=== PATIENT | female | born 1980 | race Caucasian/White ===

== ENCOUNTER → 2023-08-02 | Outpatient (CLI) | payer BC ==
[2023-08-02 07:46] LABS: Basophils # (auto) 0 10 ^3/uL (0-0.2); Basophils % (auto) 0.2 % (0.0-2.0); Eosinophils # (auto) 0.2 10 ^3/uL (0-0.8); Eosinophils % (auto) 3.3 % (0.0-7.0); Hematocrit 33.5 % (36.0-46.0); Lymphocytes # (auto) 1.9 10 ^3/uL (0.4-5.4); Lymphocytes % (auto) 24.5 % (10.0-50.0); Mean Corpuscular Hemoglobin 27.2 pg (28.0-32.0); Mean Corpuscular Hgb Conc. 32.8 g/dL (32.0-36.0); Monocytes # (auto) 0.3 10 ^3/uL (0-1.3); Monocytes % (auto) 4.4 % (0.0-12.0); Neutrophils # (auto) 5.1 10 ^3/uL (1.6-8.6); Neutrophils % (auto) 67.6 % (37.0-80.0); Red Blood Cells 4.04 10^6/uL (4.0-5.20); Red Cell Distribution Width 15.2 % (11.8-14.3); White Blood Cell 7.6 10^3/uL (4.4-10.8)
[2023-08-02 08:34] LABS: Alanine Aminotransferase 18 U/L (7-40); Albumin 4.5 g/dL (3.2-4.8); Alkaline Phosphatase 62 U/L (46-116); Anion Gap 6 (5-15); Aspartate Aminotransferase 10 U/L (13-40); BUN/Creatinine Ratio 10.4 (10.0-20.0); Bilirubin, Total 0.2 mg/dL (0.2-1.0); Blood Urea Nitrogen 8 mg/dL (9-23); Calcium 9.1 mg/dL (8.5-10.1); Carbon Dioxide 26 mmol/L (20-30); Chloride 107 mmol/L (98-107); Cholesterol 170 mg/dL (< 200); Glucose 102 mg/dL (74-106); HDL Cholesterol 40 mg/dL (40-59); LDL Cholesterol 116 mg/dL (< 100); Potassium 4.3 mmol/L (3.5-5.1); Sodium 139 mmol/L (136-145); Total Protein 6.9 g/dL (5.7-8.2); Triglycerides 135 mg/dL (< 150)
[2023-08-02 11:54] LABS: Urine Blood Negative /uL (Negative); Urine Clarity Clear (Clear); Urine Color Light-Yellow (Yellow); Urine Protein, UAD Negative (Negative); Urine Urobilinogen Normal (Negative)
== END | disposition home or self-care (01) ==
LOC: LAB 07:25
PROVIDERS: ATTEND Family Medicine
DX: K76.0 Fatty (change of) liver, not elsewhere classified (principal); R73.03 Prediabetes; E78.5 Hyperlipidemia, unspecified; E66.01 Morbid (severe) obesity due to excess calories; E88.1 Lipodystrophy, not elsewhere classified; E79.0 Hyperuricemia without signs of inflammatory arthritis and tophaceous disease; Z87.442 Personal history of urinary calculi
CPT/HCPCS: 36415; 80053; 80061; 81003; 83036; 84443; 84550; 85025

== ENCOUNTER 2024-01-21 06:25 | Inpatient (IN) | payer BC ==
[2024-01-18 13:02] LABS: Urine Bacteria None Seen /hpf (None Seen)
[2024-01-18 13:15] LABS: Basophils # (auto) 0 10 ^3/uL (0-0.2); Basophils % (auto) 0.2 % (0.0-2.0); Eosinophils # (auto) 0.2 10 ^3/uL (0-0.8); Eosinophils % (auto) 2.7 % (0.0-7.0); Hematocrit 33.1 % (36.0-46.0); Hemoglobin 10.7 g/dL (12.2-16.2); Lymphocytes # (auto) 2.4 10 ^3/uL (0.4-5.4); Mean Corpuscular Hemoglobin 26.9 pg (28.0-32.0); Mean Corpuscular Hgb Conc. 32.4 g/dL (32.0-36.0); Monocytes # (auto) 0.3 10 ^3/uL (0-1.3); Monocytes % (auto) 4.1 % (0.0-12.0); Neutrophils # (auto) 3.8 10 ^3/uL (1.6-8.6); Platelet Count (auto) 339 10^3/uL (140-450); Red Blood Cells 3.99 10^6/uL (4.0-5.20); Red Cell Distribution Width 14.3 % (11.8-14.3); White Blood Cell 6.8 10^3/uL (4.4-10.8)
[2024-01-18 13:29] LABS: INR 1.05 (0.9-1.15); Partial Thromboplastin Time 28.2 SEC (24.5-34.5); Prothrombin Time 11.1 sec (9.3-11.8)
[2024-01-18 13:33] LABS: Urine Blood 2+ /uL (Negative); Urine Clarity Clear (Clear); Urine Color Light-Yellow (Yellow); Urine Protein, UAD Negative (Negative); Urine Specific Gravity 1.013 (1.001-1.035); Urine Urobilinogen Normal (Negative); Urine WBC <1 /hpf (0 - 5); Urine pH 5.5 (5.0-9.0)
[2024-01-18 13:54] LABS: Alanine Aminotransferase 24 U/L (7-40); Albumin 4.6 g/dL (3.2-4.8); Alkaline Phosphatase 60 U/L (46-116); Anion Gap 5 (5-15); Aspartate Aminotransferase 9 U/L (13-40); BUN/Creatinine Ratio 11.4 (10.0-20.0); Bilirubin, Total 0.3 mg/dL (0.2-1.0); Blood Urea Nitrogen 9 mg/dL (9-23); Calcium 9.7 mg/dL (8.7-10.4); Carbon Dioxide 29 mmol/L (20-31); Chloride 105 mmol/L (98-107); Glucose 93 mg/dL (74-106); Potassium 4.1 mmol/L (3.5-5.1); Sodium 139 mmol/L (136-145); Total Protein 7.1 g/dL (5.7-8.2)
--- NOTE | 2024-01-18 14:04 | DVHHP ---
ADMIT DATE: 01/21/2024 CHIEF COMPLAINT: Abnormal uterine bleeding, heavy menses. HISTORY OF PRESENT ILLNESS: The patient is a 43-year-old, 2, para 2, admitted for exploratory laparotomy, supracervical hysterectomy. The patient has had several years of heavy abnormal bleeding. Her ultrasound reveals 15 x 10 x 8 cm uterus with submucosal myoma. Her Pap is normal. Risks, complication, alternatives, indications discussed with the patient. The patient wants supracervical hysterectomy with possible removal of tubes. PAST MEDICAL HISTORY: None. PAST SURGICAL HISTORY: x2. SOCIAL HISTORY: None. FAMILY HISTORY: None. OBSTETRIC AND GYNECOLOGIC HISTORY: Two sections. ALLERGIES: No known drug allergies. REVIEW OF SYSTEMS: Consistent with HPI. PHYSICAL EXAMINATION: VITAL SIGNS: Stable. Afebrile. HEENT: Within normal limits. CARDIOVASCULAR: Regular rate and rhythm. LUNGS: Clear to auscultation. BREASTS: Symmetrical. No masses. ABDOMEN: Soft. Obese. Midline mass palpated. PELVIC: External genitalia within normal limits. Vagina: Normal. Cervix: Grossly normal-appearing uterus, 15 week size. Adnexa nonpalpable. EXTREMITIES: No clubbing, cyanosis, or edema. IMPRESSION: * Menorrhagia with anemia. * Symptomatic fibroid uterus with a submucosal myoma. * Morbid obesity. * History of section x2. PLAN: Exploratory laparotomy, possible supracervical hysterectomy, possible removal of bilateral tubes. Informed consent obtained. Risks and complications of surgery including infection, bleeding, hematoma formation, possibility of blood transfusion discussed with the patient. Need for having Pap every year discussed with the patient. The patient fully understands. She wishes to proceed with planned procedure. Possibility of infection, DVT, PE discussed with the patient. DO IVONNE Biswas TID: [id number] RECEIPT: [id number]
[~2024-01-21] VITALS: Ht 167.6 cm; Wt 123.1 kg
[~2024-01-21 06:25] MED LIST: MULT-1018 OR
[2024-01-21] MEDS: ceFAZolin 2 GM/D5W100ml 100 ML IV ONE (06:33)
[2024-01-21] MEDS: LIDOCAINE 1% HCL (LOCAL ANESTH.) INJ 20ML MDV ONE ×2 (07:01→08:30)
[2024-01-21] MEDS: SUCCINYLCHOLINE CHLORIDE 20 MG/ML 10ML VIAL IV ONE (07:06)
[2024-01-21] MEDS ORDERED: fentaNYL CITRATE 100 MCG/2 ML VL ONE (07:08)
[2024-01-21] MEDS ORDERED: PROPOFOL 10 MG/ML 20 ML IV ONE (07:09)
[2024-01-21] MEDS ORDERED: ROCURONIUM 10MG/ML 10ML VIAL IV ONE (07:22)
[2024-01-21] MEDS ORDERED: DexAMETHasone SOD PHOS 10MG/1ML VIAL INJ ONE (07:25)
[2024-01-21] MEDS ORDERED: ONDANSETRON HCL 4 MG/2 ML VIAL ONE (07:25)
[2024-01-21] MEDS ORDERED: PHENYLEPHRINE HCL 10 MG/ML VL ONE (07:25)
[2024-01-21] MEDS: ROPIVACAINE 0.5% (5MG/ML) 20ML AMPULE IJ ONE (08:06)
[2024-01-21] MEDS ORDERED: MEPERIDINE HCL (50 MG/ML) 1 ML VIAL ONE (08:14)
[2024-01-21] MEDS: BUPIVACAINE W/ EPINEPH 0.5% INJ 50ML MDV IJ ONE (08:30)
[2024-01-21] MEDS ORDERED: SUGAMMADEX 200mg/2ml Vial (100MG/ML) IV ONE (08:32)
[2024-01-21] MEDS ORDERED: MEPERIDINE HCL (25 MG/ML) 1ML VIAL ONE (08:39)
[2024-01-21 08:57] VITALS: O2SAT 100
[2024-01-21] MEDS: ONDANSETRON HCL 4 MG/2 ML VIAL IV ONE (09:15)
[2024-01-21] MEDS: HYDROmorphone HCL 2 MG/ML VL/or syr IV PRN ×2 (09:36→17:49)
[2024-01-21] MEDS: LACTATED RINGER'S 1,000 ML IV SCH (09:45)
[2024-01-21] MEDS: ACETAMINOPHEN IV 100 ML IV ONE (12:08)
[2024-01-21] MEDS: ACETAMINOPHEN IV 1000 MG/100ML (10MG/ML) IV PRN (12:13)
[2024-01-21] MEDS: MEPERIDINE HCL (25 MG/ML) 1ML VIAL ONE (13:35)
[2024-01-21] MEDS: MEPERIDINE HCL (25 MG/ML) 1ML VIAL IV PRN (13:37)
[2024-01-21 14:20] VITALS: BP 121/68; PULSE 83; RESP 14; TEMP 97.4; O2SAT 96
[2024-01-21 14:33] VITALS: PULSE 83; RESP 14; O2SAT 96
[2024-01-21] MEDS ORDERED: IBUP-1456 PO (14:36)
[2024-01-21] MEDS ORDERED: HYDR-4072 PO (14:36)
[2024-01-21] MEDS ORDERED: DOCU-94 PO (14:36)
[2024-01-21] MEDS ORDERED: ZOFR4T PO (14:36)
--- NOTE | 2024-01-21 14:59 | POSTOP ---
Post-Operative Note Post-Operative Note Preop Diagnosis aub,memorrhagia with anemia submucosal myoma morbid obesity Postop Diagnosis: same Operation performed expl lap,supracervical hysterectomy Specimen uterus Anesthesia: General Anesthesiologist: kelli Blood Loss(fluid mgmt) 100ml Surgeon Mahad Ruff [place] dr staley and vonda Implant filschie Complications & Mgmt none Additional Remarks op report [id number] Date 01/21/24 Time 14:56 MAHAD RUFF DO Jan 21, 2024 14:59
--- NOTE | 2024-01-21 15:36 | DVHOP ---
DATE OF SURGERY: 01/21/2024 POSTOPERATIVE DIAGNOSES: * Abnormal uterine bleeding. * Menorrhagia with anemia. * Submucosal myoma. * Morbid obesity. POSTOPERATIVE DIAGNOSES: * Abnormal uterine bleeding. * Menorrhagia with anemia. * Submucosal myoma. * Morbid obesity. PROCEDURE: Exploratory laparotomy, supracervical hysterectomy. SURGEON: Dr. Ruff. WIRE MESH KNITTER: Dr. An and Dr. Herrera. TYPE OF ANESTHESIA: General. ANESTHESIOLOGIST: Dr. Kennedy. INDICATIONS: The patient has been having heavy bleeding with anemia, history of transfusion. The patient was found to have submucosal myoma. The patient decided for definitive therapy. She desired supracervical hysterectomy, was adamant about keeping her cervix and tubes and ovaries. DESCRIPTION OF FINDING: Enlarged 15 week size uterus, normal ovaries and tubes bilaterally. DESCRIPTION OF PROCEDURE: The patient was taken to the operating room where she was placed under general anesthesia. She was then prepped and draped in supine position. She was sterilely prepped and draped in the usual fashion. A Pfannenstiel skin incision was made 2 cm above the symphysis pubis. On prior scar this incision was carried to the underlying layer of fascia. The fascia was extended laterally using electrocautery. The rectus muscles were dissected off the rectus fascia and entry into the peritoneal cavity was made. The peritoneal incision was extended superiorly and inferiorly with good visualization of underlying organs. There was some adhesions to the anterior abdominal wall and lower uterine segment, which was carefully dissected. An Jake O retractor was placed into the incision and bowel was packed with moist laparotomy sponge. The uterus was controlled with a double tooth tenaculum at the fundus. Bladder was dissected off lower uterine segment. Using a JU stapler the round ligament was bilaterally transected. Good hemostasis was noted. The uteroovarian ligament was then transected, this procedure was done bilaterally. Endo-JU was applied all the way to the level of uterine arteries. Excellent hemostasis was obtained. Geovanna clamp was then placed at the level of uterine arteries, suture ligated transected bilaterally. The uterus was amputated at the level of cervical junction. The cervical cuff was then closed in an interrupted fashion, no bleeding was noted. Abdomen was thoroughly irrigated. Bleeding points were controlled with cautery. There was good hemostasis. All laparotomy sponges were removed from the abdomen and pelvis. The rectus fascia was then closed with #1 PDS. The subcutaneous tissue was irrigated and closed in 2 layers using 3-0 plain gut in a continuous fashion. The skin was closed in subcuticular fashion using 3-0 Vicryl. No bleeding was noted. Estimated blood loss was noted to be 100 mL. The patient tolerated the procedure well. She was taken to recovery room in stable condition. DO MARIA C Biswas TID: [id number] RECEIPT: [id number]
[2024-01-21] MEDS: ceFAZolin 1GM/50ML 50 ML IV SCH (15:39)
[2024-01-21 17:00] VITALS: BP 120/73; PULSE 64; RESP 16; TEMP 98.1; O2SAT 98
[2024-01-21 20:00] VITALS: PULSE 67; RESP 18; O2SAT 96
[2024-01-21 21:00] VITALS: BP 102/62; PULSE 68; RESP 18; TEMP 97.9; O2SAT 96
[2024-01-21 21:07] LABS: Hematocrit 31.1 % (36.0-46.0); Hemoglobin 10.3 g/dL (12.2-16.2); Mean Corpuscular Hemoglobin 27.7 pg (28.0-32.0); Mean Corpuscular Hgb Conc. 33.1 g/dL (32.0-36.0); Mean Corpuscular Volume 83.6 fL (80.0-100.0); Platelet Count (auto) 352 10^3/uL (140-450); Red Blood Cells 3.72 10^6/uL (4.0-5.20); Red Cell Distribution Width 14.7 % (11.8-14.3); White Blood Cell 13.1 10^3/uL (4.4-10.8)
[2024-01-21 21:11] LABS: Basophils % (manual) 0 (0.0-2.0); Blast Cells 0; Eosinophils % (manual) 0 (0-7); Metamyelocytes % 0; Myelocytes % 0; Promyelocytes % 0; Reactive Lymphocytes 0
[2024-01-21 21:38] LABS: Band Neutrophils % (manual) 2; Lymphocytes % (manual) 9 (10.0-50.0); Monocytes % (manual) 2 (0-12); Platelet Estimate Adequate
[2024-01-22] VITALS (8 sets, daily range): BP systolic 93–104; BP diastolic 47–62; PULSE 61–79; RESP 14–19; TEMP 97.8–98.2; O2SAT 95–99
[2024-01-22] MEDS: LACTATED RINGER'S 1,000 ML IV SCH (04:45)
[2024-01-22] MEDS ORDERED: BISACODYL 10 MG RECT SUPP PR PRN (05:00)
[2024-01-22 06:36] LABS: Basophils # (auto) 0 10 ^3/uL (0-0.2); Basophils % (auto) 0.2 % (0.0-2.0); Eosinophils # (auto) 0 10 ^3/uL (0-0.8); Hemoglobin 9.6 g/dL (12.2-16.2); Lymphocytes # (auto) 1.6 10 ^3/uL (0.4-5.4); Lymphocytes % (auto) 13.4 % (10.0-50.0); Mean Corpuscular Hemoglobin 26.8 pg (28.0-32.0); Mean Corpuscular Volume 83.8 fL (80.0-100.0); Monocytes # (auto) 0.6 10 ^3/uL (0-1.3); Monocytes % (auto) 4.8 % (0.0-12.0); Neutrophils # (auto) 9.8 10 ^3/uL (1.6-8.6); Neutrophils % (auto) 81.6 % (37.0-80.0); Platelet Count (auto) 332 10^3/uL (140-450); Red Blood Cells 3.58 10^6/uL (4.0-5.20); Red Cell Distribution Width 14.6 % (11.8-14.3)
--- NOTE | 2024-01-22 08:31 | DVHPN2 ---
Chief Complaints Patient reports: No new complaints Nursing reports: No new complaints Objective Vitals Vital Signs Date Time Temp Pulse Resp B/P (MAP) Pulse Ox O2 Delivery O2 Flow Rate FiO2 01/22/24 06:10 65 18 100/60 01/22/24 05:00 98.2 98 98.2 01/21/24 20:00 Room Air* 0 21 Medications Current Medications Medications (Trade) Dose Ordered Sig/Enrique Route PRN Reason Start Time Stop Time Status Last Admin Acetaminophen/ Hydrocodone Bitart ([place] 10/325MG Tab) 1 tab Q4HP PRN PO SEVERE PAIN (7-10 PAIN SCALE) 01/22/24 05:00 Bisacodyl (Dulcolax Suppository) 10 mg Q6HP PRN [place] FOR CONSTIPATION 01/22/24 05:00 Cefazolin Sodium 50 ml @ 100 mls/hr Q8HR IV 01/21/24 15:30 01/22/24 05:40 Docusate Sodium (Colace Capsule) 100 mg BID PO 01/22/24 10:00 Hydromorphone HCl (Dilaudid Injection) 1 mg Q4HPRN PRN IV SEVERE PAIN (7-10 PAIN SCALE) 01/21/24 09:45 01/22/24 10:00 01/22/24 05:42 Lactated Ringer's 1,000 ml @ 80 mls/hr [id number] IV 01/22/24 04:45 Lactated Ringer's 1,000 ml @ 150 mls/hr [id number] IV 01/21/24 09:45 01/22/24 02:11 General: Normal Lungs: Normal Cardiovascular: Normal Abdominal: Soft Musculoskeletal: Normal Studies Laboratory Tests 01/22/24 06:00 01/18/24 12:47 Test 01/18/24 12:47 Range/Units Serum Glucose 93 74-106 mg/dL Ass/Plan Assessment s/p supracervical hyst Plan supportive care MAHAD TELLES DO Jan 22, 2024 08:31
[2024-01-22] MEDS: DOCUSATE SOD 100 MG CAP PO SCH (09:29)
[2024-01-22] MEDS: HYDROcodone-ACET 10/325MG TAB PO PRN (12:59)
--- NOTE | 2024-01-22 16:52 | DVHINCON2 ---
Date Seen: Jan 22, [address] Ruff Family History: FH: pancreatic cancer G8 MOTHER Allergies: Coded Allergies: NO KNOWN ALLERGIES (Unverified , 01/19/24) Home Meds Active Scripts Ondansetron Odt 4MG Tab (ZOFRAN PO) 4 Mg Tb, 4 MG PO Q4HPRN PRN for 10 Days, #50 TAB ODT TAB-DISSOLVE IN MOUTH, THEN SWALLOW Prov:MAHAD RUFF DO 01/21/24 Ibuprofen (Ibuprofen) 800 Mg Tab, 800 MG PO TID PRN for 4 Days, #12 TAB Prov:MAHAD RUFF DO 01/21/24 Hydrocodone-Acetaminophen (Hydrocodone/Acetaminophen 10-325 mg) 1 Tab Tab, 1 TAB PO Q6HPRN PRN for 7 Days, #28 TAB Prov:MAHAD RUFF DO 01/21/24 Docusate Sodium (Colace) 100 Mg Cap, 1 CAP PO BID, #60 CAP 2 Refills Prov:MAHAD RUFF DO 01/21/24 Reported Medications Multiple Vitamin (Multivitamins) Tab, 1 TAB OR DAILY, TAB 01/20/24 Current Medications Current Medications Medications (Trade) Dose Ordered Sig/Enrique Route PRN Reason Start Time Stop Time Status Last Admin Lactated Ringer's 1,000 ml @ 80 mls/hr [id number] IV 01/22/24 04:45 Acetaminophen/ Hydrocodone Bitart ([place] 10/325MG Tab) 1 tab Q4HP PRN PO SEVERE PAIN (7-10 PAIN SCALE) 01/22/24 05:00 01/22/24 16:45 Docusate Sodium (Colace Capsule) 100 mg BID PO 01/22/24 10:00 01/22/24 09:29 Bisacodyl (Dulcolax Suppository) 10 mg Q6HP PRN [place] FOR CONSTIPATION 01/22/24 05:00 Vital Signs Vital Signs Date Time Temp Pulse Resp B/P (MAP) Pulse Ox O2 Delivery O2 Flow Rate FiO2 01/22/24 12:00 98.1 65 16 97/47 (64) 95 98.1 01/22/24 08:00 Room Air* 0 21 Labs/Diagnostic Data Labs Test 01/22/24 06:00 01/21/24 20:45 01/18/24 12:47 Range/Units White Blood Count 12.0 H 4.4-10.8 10^3/uL Red Blood Count 3.58 L 4.0-5.20 10^6/uL Hemoglobin 9.6 L 12.2-16.2 g/dL Hematocrit 30.0 L 36.0-46.0 % Mean Corpuscular Volume 83.8 80.0-100.0 fL Mean Corpuscular Hemoglobin 26.8 L 28.0-32.0 pg Mean Corpuscular Hemoglobin Concent 32.0 32.0-36.0 g/dL Red Cell Distribution Width 14.6 H 11.8-14.3 % Platelet Count 332 140-450 10^3/uL Mean Platelet Volume 7.6 6.9-10.8 fL Neutrophils (%) (Auto) 81.6 H 37.0-80.0 % Lymphocytes (%) (Auto) 13.4 10.0-50.0 % Monocytes (%) (Auto) 4.8 0.0-12.0 % Eosinophils (%) (Auto) 0.0 0.0-7.0 % Basophils (%) (Auto) 0.2 0.0-2.0 % Neutrophils # (Auto) 9.8 H 1.6-8.6 10 ^3/uL Lymphocytes # (Auto) 1.6 0.4-5.4 10 ^3/uL Monocytes # (Auto) 0.6 0-1.3 10 ^3/uL Eosinophils # (Auto) 0 0-0.8 10 ^3/uL Basophils # (Auto) 0 0-0.2 10 ^3/uL Nucleated Red Blood Cells 0.0 % Differential Total Cells Counted 100.0 100 Neutrophils % (Manual) 87 H 37.0-80.0 Band Neutrophils % (Manual) 2 Lymphocytes % (Manual) 9 L 10.0-50.0 Monocytes % (Manual) 2 0-12 Eosinophils % (Manual) 0 0-7 Basophils % (Manual) 0 0.0-2.0 Metamyelocytes % (manual) 0 Myelocytes % (Manual) 0 Promyelocytes % (Manual) 0 Blast Cells % (Manual) 0 Reactive Lymphocytes 0 Platelet Estimate Adequate Prothrombin Time 11.1 9.3-11.8 sec Prothrombin Time INR 1.05 0.9-1.15 Activated Partial Thromboplast Time 28.2 24.5-34.5 SEC Urine Color Light-yellow Yellow Urine Clarity Clear Clear Urine pH 5.5 5.0-9.0 Urine Specific [place] 1.013 1.001-1.035 Urine Protein Negative Negative Urine Ketones Negative Negative Urine Blood 2+ H Negative /uL Urine Nitrite Negative Negative Urine Bilirubin Negative Negative Urine Urobilinogen Normal Negative mg/dL Urine Leukocyte Esterase Negative Negative /uL Urine RBC 3 0 - 4 /hpf Urine WBC <1 0 - 5 /hpf Urine Squamous Epithelial Cells Few <5 /hpf Urine Bacteria None seen None Seen /hpf Urine Glucose Normal Normal mg/dL Urine Test Negative Negative Sodium Level 139 136-145 mmol/L Potassium Level 4.1 3.5-5.1 mmol/L Chloride Level 105 98-107 mmol/L Carbon Dioxide Level 29 20-31 mmol/L Anion Gap 5 5-15 Blood Urea Nitrogen 9 9-23 mg/dL Creatinine 0.79 0.550-1.02 mg/dL Glomerular Filtration Rate Calc 95 >90 mL/min BUN/Creatinine Ratio 11.4 10.0-20.0 Serum Glucose 93 74-106 mg/dL Calcium Level 9.7 8.7-10.4 mg/dL Total Bilirubin 0.3 0.2-1.0 mg/dL Aspartate Amino Transferase (AST) 9 L 13-40 U/L Alanine Aminotransferase (ALT) 24 7-40 U/L Alkaline Phosphatase 60 46-116 U/L Total Protein 7.1 5.7-8.2 g/dL Albumin 4.6 3.2-4.8 g/dL Beta HCG, Quantitative 0.2 L 1.5-4.2 mIU/mL Assessment s/p hysterectomy normocytic anemia Renal H&H Strict I&O DVT prophylaxis on hold Advance diet as tolerated Plan discussed with: Other Date of Service: Jan 22, 2024 Billing Provider: DOROTA MARION MD Common Visit Codes: CONSULT ONLY Consultation Codes: [id number] CONSULT <45MIN DOROTA MARION MD Jan 22, 2024 16:51
[2024-01-22] MEDS: IBUPROFEN 400 MG TAB PO SCH (21:42)
[2024-01-22] MEDS: ACETAMINOPHEN 325 MG TAB PO SCH (21:42)
[2024-01-23 01:00] VITALS: BP 120/57; PULSE 80; RESP 18; TEMP 97.6; O2SAT 95
[2024-01-23 04:39] LABS: Alanine Aminotransferase 19 U/L (7-40); Albumin 3.8 g/dL (3.2-4.8); Alkaline Phosphatase 49 U/L (46-116); Anion Gap 5 (5-15); Aspartate Aminotransferase 29 U/L (13-40); Basophils # (auto) 0 10 ^3/uL (0-0.2); Basophils % (auto) 0.3 % (0.0-2.0); Blood Urea Nitrogen 9 mg/dL (9-23); Calcium 8.7 mg/dL (8.7-10.4); Carbon Dioxide 29 mmol/L (20-31); Chloride 106 mmol/L (98-107); Eosinophils # (auto) 0 10 ^3/uL (0-0.8); Eosinophils % (auto) 0.3 % (0.0-7.0); Glucose 96 mg/dL (74-106); Hematocrit 27.9 % (36.0-46.0); Hemoglobin 9.4 g/dL (12.2-16.2); Lymphocytes # (auto) 2.6 10 ^3/uL (0.4-5.4); Lymphocytes % (auto) 38.3 % (10.0-50.0); Magnesium 1.9 mg/dL (1.6-2.6); Mean Corpuscular Hemoglobin 27.8 pg (28.0-32.0); Mean Corpuscular Hgb Conc. 33.6 g/dL (32.0-36.0); Mean Corpuscular Volume 82.8 fL (80.0-100.0); Monocytes # (auto) 0.3 10 ^3/uL (0-1.3); Monocytes % (auto) 4.4 % (0.0-12.0); Neutrophils # (auto) 3.9 10 ^3/uL (1.6-8.6); Neutrophils % (auto) 56.7 % (37.0-80.0); Nucleated Red Blood Cells % 0.1 %; Platelet Count (auto) 280 10^3/uL (140-450); Red Blood Cells 3.37 10^6/uL (4.0-5.20); Red Cell Distribution Width 14.4 % (11.8-14.3); Sodium 140 mmol/L (136-145); White Blood Cell 6.8 10^3/uL (4.4-10.8)
[2024-01-23 04:40] LABS: Bilirubin, Total 0.3 mg/dL (0.2-1.0); Phosphorus 2.9 mg/dL (2.4-5.1); Total Protein 5.6 g/dL (5.7-8.2)
[2024-01-23 05:00] VITALS: BP 111/54; PULSE 75; RESP 18; TEMP 98.1; O2SAT 96
--- NOTE | 2024-01-23 07:29 | DVHPN2 ---
Chief Complaints Patient reports: No new complaints Nursing reports: No new complaints Objective Vitals Vital Signs Date Time Temp Pulse Resp B/P (MAP) Pulse Ox O2 Delivery O2 Flow Rate FiO2 01/23/24 05:00 98.1 75 18 111/54 (73) 96 98.1 01/22/24 20:00 Room Air* 0 21 Medications Current Medications Medications (Trade) Dose Ordered Sig/Enrique Route PRN Reason Start Time Stop Time Status Last Admin Acetaminophen (Tylenol Tablet) 650 mg Q8HR PO 01/22/24 22:00 01/23/24 05:44 Docusate Sodium (Colace Capsule) 100 mg BID PO 01/22/24 10:00 01/22/24 21:42 Ibuprofen (Motrin Tablet) 400 mg Q8HR PO 01/22/24 22:00 01/23/24 05:44 General: Normal Lungs: Normal Cardiovascular: Normal Abdominal: Normal, Soft Musculoskeletal: Normal Extremities: Normal Studies Laboratory Tests 01/23/24 03:53 Test 01/23/24 03:53 Range/Units Serum Glucose 96 74-106 mg/dL Ass/Plan Assessment s/p supracervical hyst Plan AL HOME FU NEXT 9AM MAHAD TELLES DO Jan 23, 2024 07:29
--- NOTE | 2024-01-23 07:30 | DVHDS2 ---
Physician Discharge Progress N Final Diagnosis: AUB ,MENORRHAGIA WITH ANEMIA Operations or Procedures: Operations or Procedures expl lap,supracervical hysterectomy Condition on Discharge: Good Disposition: Home Discharge Instructions: Diet: Regular Activity: Light activity Medications: FRANTZ JO MOTRIN Follow Up Care: Specialist: WEDNESDAY AT 9AM ,ON 01/31 Discharge Statement: "Patient was advised to return to the ER or call 911 if any headaches, dizziness, shortness of breath, chest pain, abdominal pain, bleeding, fevers, or worsening of medical condition. Patient was counseled about treatment plan, medications, possible side effects, patientverbalized understanding. All questions were answered to the best of my ability. This discharge took greater then 30 minutes in planning, reviewing documentation, counseling the patient, and discussing with other team members." MAHAD TELLES DO Jan 23, 2024 07:30
[2024-01-23] MEDS ORDERED: CEPH500T PO (07:31)
[2024-01-23 08:00] VITALS: PULSE 76; RESP 17; O2SAT 96
[2024-01-23 09:00] VITALS: BP 120/71; PULSE 69; RESP 17; TEMP 97.9; O2SAT 95
== END 2024-01-23 13:30 | disposition home or self-care (01) | DRG 742 ==
LOC: SUR 06:25 → OVERFLOW 09:31 → CENTRAL 14:15
PROVIDERS: ADMIT Obstetrics & Gynecology; ATTEND Obstetrics & Gynecology
PROC: 0UT90ZL Resection of Uterus, Supracervical, Open Approach (ICD-10-PCS; principal; 2024-01-21 07:16)
DX: N93.9 Abnormal uterine and vaginal bleeding, unspecified (principal); Z68.41 Body mass index [BMI] 40.0-44.9, adult; D25.0 Submucous leiomyoma of uterus; N92.0 Excessive and frequent menstruation with regular cycle; E66.01 Morbid (severe) obesity due to excess calories; D64.9 Anemia, unspecified; K66.0 Peritoneal adhesions (postprocedural) (postinfection); Z80.0 Family history of malignant neoplasm of digestive organs
CPT/HCPCS: 36415; 80053; 81001; 81025; 83735; 84100; 84702; 85007; 85025; 85027; 85610; 85730; 86850; 86900; 86901; G0378; J0131; J0330; J1100; J2003; J2405; J2704

== ENCOUNTER → 2024-04-19 | Outpatient (CLI) | payer BC ==
[~2024-04-19] MED LIST changes: +CEPH500T PO; +DOCU-94 PO; +HYDR-4072 PO; +IBUP-1456 PO; +ZOFR4T PO
[2024-04-19 07:04] LABS: Basophils # (auto) 0 10 ^3/uL (0-0.2); Basophils % (auto) 0.5 % (0.0-2.0); Eosinophils # (auto) 0.2 10 ^3/uL (0-0.8); Eosinophils % (auto) 3.1 % (0.0-7.0); Mean Corpuscular Volume 79.8 fL (80.0-100.0); Monocytes # (auto) 0.3 10 ^3/uL (0-1.3); Monocytes % (auto) 4.7 % (0.0-12.0); Neutrophils # (auto) 3.7 10 ^3/uL (1.6-8.6); White Blood Cell 6.3 10^3/uL (4.4-10.8)
[2024-04-19 07:05] LABS: Hemoglobin 11.6 g/dL (12.2-16.2); Lymphocytes # (auto) 2.1 10 ^3/uL (0.4-5.4); Lymphocytes % (auto) 32.5 % (10.0-50.0); Mean Corpuscular Hemoglobin 26.5 pg (28.0-32.0); Mean Corpuscular Hgb Conc. 33.2 g/dL (32.0-36.0); Neutrophils % (auto) 59.2 % (37.0-80.0); Platelet Count (auto) 325 10^3/uL (140-450); Red Blood Cells 4.39 10^6/uL (4.0-5.20)
[2024-04-19 08:22] LABS: Alanine Aminotransferase 18 U/L (7-40); Albumin 4.6 g/dL (3.2-4.8); Alkaline Phosphatase 60 U/L (46-116); Anion Gap 9 (5-15); BUN/Creatinine Ratio 11.5 (10.0-20.0); Calcium 9.2 mg/dL (8.7-10.4); Carbon Dioxide 26 mmol/L (20-31); Chloride 104 mmol/L (98-107); Cholesterol 178 mg/dL (< 200); Glucose 102 mg/dL (74-106); Potassium 4.3 mmol/L (3.5-5.1); Sodium 139 mmol/L (136-145)
[2024-04-19 08:24] LABS: Aspartate Aminotransferase 12 U/L (13-40); Bilirubin, Total 0.3 mg/dL (0.2-1.0); Blood Urea Nitrogen 9 mg/dL (9-23); LDL Cholesterol 125 mg/dL (< 100); Triglycerides 150 mg/dL (< 150)
[2024-04-19 08:31] LABS: HDL Cholesterol 38 mg/dL (40-59)
[2024-04-19 08:52] LABS: Uric Acid 7.4 mg/dL (3.1-7.8)
== END | disposition home or self-care (01) ==
LOC: LAB 06:30
PROVIDERS: ATTEND Family Medicine
DX: Z00.01 Encounter for general adult medical examination with abnormal findings (principal); E79.0 Hyperuricemia without signs of inflammatory arthritis and tophaceous disease; D62 Acute posthemorrhagic anemia; R42 Dizziness and giddiness
CPT/HCPCS: 36415; 80053; 80061; 83036; 84550; 85025

== ENCOUNTER → 2024-04-20 | Outpatient (CLI) | payer BC ==
[2024-04-20 06:55] LABS: Urine Bacteria FEW /hpf (None Seen); Urine Blood Negative /uL (Negative); Urine Clarity Clear (Clear); Urine Color Light-Yellow (Yellow); Urine Protein, UAD Negative (Negative); Urine Specific Gravity 1.016 (1.001-1.035); Urine Squamous Epithelial Cell FEW /hpf (<5); Urine Urobilinogen Normal (Negative); Urine WBC < 1 /HPF (0-5)
== END | disposition home or self-care (01) ==
LOC: LAB 06:30
PROVIDERS: ATTEND Family Medicine
DX: R73.03 Prediabetes (principal)
CPT/HCPCS: 81001; 82570